=== PATIENT | female | born 1995 | race Caucasian/White ===

== ENCOUNTER → 2024-02-05 18:18 | Outpatient (REF) | payer BC, SELFPAY | LOC: PAVMRI 18:18 | PROVIDERS: ATTENDING PHYSICIAN Internal Medicine Rheumatology; FAMILY PHYSICIAN Nurse Practitioner | DX: M25.512 Pain in left shoulder (principal); M75.52 Bursitis of left shoulder | CPT/HCPCS: 73221 ==

== ENCOUNTER → 2024-02-20 14:53 | Outpatient (REF) | payer BC, SELFPAY | LOC: HWRAD 14:53 | PROVIDERS: ATTENDING PHYSICIAN Nurse Practitioner Adult Health | DX: M54.9 Dorsalgia, unspecified (principal) | CPT/HCPCS: 76770 ==

== ENCOUNTER 2024-05-09 10:07 | Emergency (ER) | payer BC, SELFPAY ==
[2024-05-09 10:18] VITALS: BP 126/85
--- NOTE | 2024-05-09 10:24 | ED.GENMED ---
ED Provider Triage
<Betty Patel PA-C - Last Filed: 05/09/24 10:36>
-
Patient seen by provider in Triage?: Seen in Triage
Patient attestation: A medical screening examination has been initiated by a qualified medical provider. Based on the assessment performed at this time, it has been determined that an emergent medical condition may exist and the patient has been
informed that further medical evaluation and possible additional diagnostic testing may be needed.
HPI: 29yoF here with multiple symptoms including back pain, fatigue, decreased appetite, SOB. Seen at urgent care 2 days ago and was told that she had a kidney infection. Currently on Bactrim without improvement. Hx of SLE.
GENERAL: Alert , in no apparent distress
EYE: No visual abnormalities.
NECK: Trachea midline
ENT: No visible abnormalities.
LUNGS: No acute respiratory distress
NEUROLOGICAL: Alert and oriented
SKIN: Skin intact. No visible changes.
MUSCULOSKELETAL: Moving extremities normally
PSYCH: Normal and appropriate interaction.
This is a medical evaluation conducted in person to initiate diagnostic evaluation and provide initial therapeutics. Please see further documentation by the treating clinician.
Cardiac labs, EKG, CXR, and UA ordered.
History of Present Illness
<Betty Patel PA-C - Last Filed: 05/09/24 10:36>
General
Chief Complaint: Urinary Symptoms
Time Seen by Provider: 05/09/24 10:47
<Timothy Mcghee PA-C - Last Filed: 05/09/24 13:50>
General
Source: patient
History of Present Illness
History of Present Illness:
29-year-old female with history of lupus presents complaining of onset of bilateral flank pain starting 3 to 4 days ago. She was seen at an urgent care 3 days ago and thought to have a kidney infection. She was placed on Bactrim. She is almost 3
days worth of Bactrim without any improvement of her back pain. She is somewhat lightheaded. She denies measurable fever but her temperature here is 99.8. No prior history of kidney stones. No nausea or vomiting. The pain is not pleuritic. No
recent travel or surgery. No chest pain. She does feel somewhat short of breath. She is currently on her menstrual cycle. No other complaints
Phy Exam
<Timothy Mcghee PA-C - Last Filed: 05/09/24 13:50>
Physical Exam
Physical Exam:
General: Well-appearing female no acute respiratory distress
HEENT: Normocephalic atraumatic
Heart: Regular rate and rhythm
Lungs: Clear no wheeze
Abdomen soft tender to the bilateral costovertebral angles. Normal bowel sounds nondistended no guarding or rebound tenderness
Extremities: No cyanosis edema or calf tenderness
Course
<Betty Patel PA-C - Last Filed: 05/09/24 10:36>
Orders/Labs/Results
Orders:
Orders
05/09/24 10:23
Test Result ONCE
05/09/24 10:27
Electrocardiogram (*1) Urgent
Reason for Study: Shortness of Breath
EKG- Treatment ONCE
CR Chest - 2 Views Urgent
Comment:
Reason For Exam: SOB
05/09/24 10:41
CMP [Comprehensive Metabolic Panel] Urgent
Complete Blood Count/With Diff Urgent
HCG, Serum Qualitative Screen Urgent
Troponin I Urgent
Urinalysis Reflex To Culture Urgent
Date Specimen was Collected: 05/09/24
Time Specimen was Collected: 10:23
Urine Microscopic Reflex Cult Urgent
05/09/24 11:03
CT Abd/pelvis W Iv Cont Urgent
Comment:
Reason For Exam: bilateral flank pain
0.9% Sodium Chloride 1000 ml [Nss] 1,000 ml IV BOLUS
Ketorolac [Toradol] 15 mg IV NOW STA
Abnormal Lab Results
05/09/24
10:41
Absolute Lymphs (auto) 0.9 L 10^3/uL
(1.2-3.4)
Immature Gran % 0.6 H %
(0-0.5)
Neutrophils % 75.8 H %
(42.2-75.2)
Lymphocytes % 13.4 L %
(20.5-51.1)
Glucose 112 H mg/dl
(70-99)
AST 58 H U/L
(14-36)
ALT 119 H U/L
(0-35)
Ur Occult Blood Reflex 2+ A
(Negative)
Urine RBC 11-15 A /HPF
(0-2)
05/09/24 10:41
05/09/24 10:41
Vital Signs
Initial and Last Documented VS:
Initial Vital Signs
Temp Pulse Resp BP Pulse Ox
99.8 F 91 16 126/85 100
05/09/24 10:18 05/09/24 10:18 05/09/24 10:18 05/09/24 10:18 05/09/24 10:18
Last Documented Vital Signs
Temp Pulse Resp BP Pulse Ox
99.8 F 91 16 101/75 99
05/09/24 10:18 05/09/24 10:18 05/09/24 10:18 05/09/24 12:00 05/09/24 13:15
Benjielt;Timothy Mcghee PA-C - Last Filed: 05/09/24 13:50>
Orders/Labs/Results
Orders:
Orders
05/09/24 10:23
Test Result ONCE
05/09/24 10:27
Electrocardiogram (*1) Urgent
Reason for Study: Shortness of Breath
EKG- Treatment ONCE
CR Chest - 2 Views Urgent
Comment:
Reason For Exam: SOB
05/09/24 10:41
CMP [Comprehensive Metabolic Panel] Urgent
Complete Blood Count/With Diff Urgent
HCG, Serum Qualitative Screen Urgent
Troponin I Urgent
Urinalysis Reflex To Culture Urgent
Date Specimen was Collected: 05/09/24
Time Specimen was Collected: 10:23
Urine Microscopic Reflex Cult Urgent
05/09/24 11:03
CT Abd/pelvis W Iv Cont Urgent
Comment:
Reason For Exam: bilateral flank pain
0.9% Sodium Chloride 1000 ml [Nss] 1,000 ml IV BOLUS
Ketorolac [Toradol] 15 mg IV NOW STA
Abnormal Lab Results
05/09/24
10:41
Absolute Lymphs (auto) 0.9 L 10^3/uL
(1.2-3.4)
Immature Gran % 0.6 H %
(0-0.5)
Neutrophils % 75.8 H %
(42.2-75.2)
Lymphocytes % 13.4 L %
(20.5-51.1)
Glucose 112 H mg/dl
(70-99)
AST 58 H U/L
(14-36)
ALT 119 H U/L
(0-35)
Ur Occult Blood Reflex 2+ A
(Negative)
Urine RBC 11-15 A /HPF
(0-2)
05/09/24 10:41
05/09/24 10:41
Vital Signs
Initial and Last Documented VS:
Initial Vital Signs
Temp Pulse Resp BP Pulse Ox
99.8 F 91 16 126/85 100
05/09/24 10:18 05/09/24 10:18 05/09/24 10:18 05/09/24 10:18 05/09/24 10:18
Last Documented Vital Signs
Temp Pulse Resp BP Pulse Ox
99.8 F 91 16 101/75 99
05/09/24 10:18 05/09/24 10:18 05/09/24 10:18 05/09/24 12:00 05/09/24 13:15
<Timothy Mcghee PA-C - Last Filed: 05/09/24 13:50>
MDM/Problems Addressed
Differential Diagnosis Includes:
Bilateral flank pain left greater than right. Question renal colic versus pyelonephritis versus musculoskeletal flank pain. Will check labs. Recheck urine. Ordered CT of abdomen and pelvis with IV contrast to evaluate for pyelonephritis. Will
check test
<Timothy Mcghee PA-C - Last Filed: 05/09/24 13:50>
*Critical Care Note
Total Time (30-74mins, 75-104mins- exclusive of procedures): Not Applicable
<Timothy Mcghee PA-C - Last Filed: 05/09/24 13:50>
Update Note
Update Note:
Reevaluated patient she is feeling much better after Toradol and fluids. Labs reviewed with normal white count urinalysis with hematuria, patient is on her menstrual cycle currently. Patient did start a course of antibiotics to the urgent care
which I advise she continue. At this point no indication for any further intervention or admission as the CT scan is negative. Stable for discharge
ED Attending Note
<Betty Patel PA-C - Last Filed: 05/09/24 10:36>
-
Portions of this chart may have been created with voice recognition software.� Occasional wrong word or��sound alike� substitutions may have occurred due to the inherent limitations of voice recognition software.
Discharge Plan
Departure
Patient Disposition: Home (Routine Discharge)
Date of Disposition: 05/09/24
Time of Disposition: 13:49
Patient with high blood pressure during this ER visit?: No
Discharge Problem:
Acute flank pain
Instructions: Urinary Tract Infection, Adult (DC)
Prescriptions:
No Action
sulfamethoxazole-trimethoprim [Bactrim DS] 800-160 mg Tablet
1 tab PO BID
Saphnelo 300 mg/2 mL (150 mg/mL) Solution
300 mg IV Q4W
Referrals:
NONE,* [Family Provider] -
Activity Restrictions/Additional Instructions:
Finish antibiotics. Stay hydrated. Return if worse otherwise follow-up with your family doctor
Interventions
Interventions:
*Risk Screen - Suicide Last Done: 05/09/24 10:49
*Neglect/Abuse Screening Last Done: 05/09/24 10:49
ED- Fall Risk Assessment Last Done: 05/09/24 10:48
*ED COVID-19 Vaccine History Last Done: 05/09/24 10:48
ED-Female Genitourinary Assessment Last Done: 05/09/24 11:23
Discharge Date and Time
Print Language: [place]
[2024-05-09 10:47] VITALS: BMI 28.7
[2024-05-09 10:48] LABS: % Basophils 0.6 % (0-2); % Eosinophils 3.6 % (0-6); % Immature Granulocytes 0.6 % (0-0.5); % Lymphocytes 13.4 % (20.5-51.1); % Neutrophils 75.8 % (42.2-75.2); Absolute Eosinophils 0.2 10^3/uL (0-0.7); Absolute Lymphocytes 0.9 10^3/uL (1.2-3.4); Absolute Monocytes 0.4 10^3/uL (0.1-0.6); Absolute Neutrophils 5.1 10^3/uL (1.4-6.5); Hematocrit 38.8 % (37.0-47.0); Hemoglobin 13.6 g/dL (12.0-16.0); Mean Corp Hgb Conc. 35.1 g/dL (33.0-37.0); Mean Corpuscular Hgb 30.4 pg (27.0-31.0); Mean Corpuscular Volume 86.6 fL (81.0-99.0); Mean Platelet Volume 8.4 fL (7.4-10.4); Nucleated Red Blood Cells % 0 %; Platelet Count 235 10^3/uL (130-400); Red Blood Cell Count 4.48 10^6/uL (4.20-5.40); Red Cell Dist. Width 12.1 % (11.5-14.5); White Blood Cell Count 6.7 10^3/uL (4.8-10.8)
[2024-05-09 10:53] VITALS: BP 114/65
[2024-05-09 10:56] LABS: Urine Albumin Negative (Neg - Trace); Urine Bilirubin Negative (Negative); Urine Character Clear (Clear); Urine Color Yellow; Urine Glucose Negative (Negative); Urine Ketone Negative (Negative); Urine Leukocyte Negative (Negative); Urine Nitrite Negative (Negative); Urine Occult Blood 2+ (Negative); Urine Urobilinogen Negative (Neg - 1+); Urine pH 6.5 (5.0-9.0)
[2024-05-09 11:00] VITALS: BP 116/83
[2024-05-09 11:13] LABS: HCG, Serum Qualitative Screen Negative
[2024-05-09 11:15] LABS: Troponin I < 0.012 ng/ml
[2024-05-09] MEDS: NSS 1000 IV (11:18)
[2024-05-09 11:20] LABS: ALT (SGPT) 119 U/L (0-35); AST (SGOT) 58 U/L (14-36); Albumin 4.4 g/dl (3.5-5.0); Alkaline Phosphatase 102 U/L (38-126); Blood Urea Nitrogen 10 mg/dl (7-17); Calcium 9.8 mg/dl (8.4-10.2); Carbon Dioxide 23 mmol/L (22-30); Chloride 105 mmol/L (98-107); Estimated Creatinine Clearance 107 ml/min; Glucose 112 mg/dl (70-99); Potassium 4.2 mmol/L (3.5-5.1); Sodium 139 mmol/L (135-145); Total Bilirubin 0.3 mg/dl (0.2-1.3); Total Protein 7.2 g/dl (6.3-8.2); eGFR > 60.00
[2024-05-09] MEDS: TORADOL 15 MG IV (11:21)
[2024-05-09 11:37] LABS: Urine Squamous Cell >30 /LPF (Few)
[2024-05-09 11:38] LABS: Urine Amorphous Seen
[2024-05-09 11:39] LABS: Urine White Cell 0-2 /HPF (0-5)
[2024-05-09 11:57] VITALS: BP 101/74
[2024-05-09 12:00] VITALS: BP 101/75
== END 2024-05-09 14:13 | disposition home or self-care (01) ==
LOC: EMR 10:07
PROVIDERS: Physician Assistant; EMERGENCY PHYSICIAN Student in an Organized Health Care Education/Training Program; OTHER PHYSICIAN Internal Medicine Rheumatology
DX: R10.9 Unspecified abdominal pain (principal); R31.9 Hematuria, unspecified; R06.02 Shortness of breath; R42 Dizziness and giddiness; M32.9 Systemic lupus erythematosus, unspecified
CPT/HCPCS: 99285; 96361; 96374; 71046; 74177; 80053; 81003; 81015; 84484; 84703; 85025; 93005; Q9967

== ENCOUNTER 2024-12-31 19:06 | Emergency (ER) | payer SELFPAY ==
[2024-12-31 19:10] VITALS: BP 127/88
[2024-12-31] MEDS: LET TOPICAL ANESTHETIC GEL 3 ML TOPICAL (20:48)
[2024-12-31] MEDS: TYLENOL 500 MG PO (21:04)
[2024-12-31] MEDS: TORADOL 15 MG IM (22:36)
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
== END 2025-01-01 00:44 | disposition home or self-care (01) ==
LOC: EMR 19:06
PROVIDERS: EMERGENCY PHYSICIAN Student in an Organized Health Care Education/Training Program; FAMILY PHYSICIAN Internal Medicine
DX: S01.511A Laceration without foreign body of lip, initial encounter (principal); M25.561 Pain in right knee; M54.2 Cervicalgia; R00.0 Tachycardia, unspecified; V49.40XA Driver injured in collision with unspecified motor vehicles in traffic accident, initial encounter; Y92.410 Unspecified street and highway as the place of occurrence of the external cause; M32.9 Systemic lupus erythematosus, unspecified
CPT/HCPCS: 99284; 12013; 96372; 70450; 73564

== ENCOUNTER → 2025-02-17 10:29 | Outpatient (REF) | payer BC, SELFPAY | LOC: HWRAD 10:29 | PROVIDERS: ATTENDING PHYSICIAN Internal Medicine | DX: J40 Bronchitis, not specified as acute or chronic (principal) | CPT/HCPCS: 71046 ==